=== PATIENT | male | born 1975 | race Hispanic/Latino ===

== ENCOUNTER 2021-01-13 02:57 | Emergency (ER) | payer SELFPAY ==
[2021-01-13] MEDS ORDERED: ONDANSETRON 4 MG (ODT) TAB ONE (04:57)
--- NOTE | 2021-01-13 05:53 | ER ---
Nurse's Notes [facility] Name: Flakito Luis Age: 45 yrs Sex: Male : 1975 Arrival Date: 01/13/2021 Time: 03:04 Bed DIS4 Private MD: Diagnosis: Gastroenteritis Presentation: 01/13 03:40 Chief complaint: Patient states: diarrhea, stomach cramps, vomiting, headache started iw around 8 pm. Coronavirus screen: diarrhea, nausea, vomiting. Client presents with at least one sign or symptom that may indicate coronavirus-19. Standard/surgical mask placed on the client. Provider contacted for isolation considerations. Ebola Screen: Patient negative for fever greater than or equal to 101.5 degrees Fahrenheit, and additional compatible Ebola Virus Disease symptoms Patient denies exposure to infectious person. Patient denies travel to an Ebola-affected area in the 21 days before illness onset. No symptoms or risks identified at this time. Initial Sepsis Screen: Does the patient meet any 2 criteria? No. Patient's initial sepsis screen is negative. Does the patient have a suspected source of infection? No. Patient's initial sepsis screen is negative. Risk Assessment: Do you want to hurt yourself or someone else? Patient reports no desire to harm self or others. Onset of symptoms was January 12, 2021. 03:40 Method Of Arrival: Ambulatory iw 03:40 Acuity: ADDISON 4 iw Historical: - Allergies: 03:42 No Known Allergies; iw - Home Meds: 03:42 None [Active]; iw - PMHx: 03:42 None; iw - PSHx: 03:42 None; iw - Immunization history:: Adult Immunizations not up to date. - Social history:: Smoking status: Patient reports the use of cigarette tobacco products, denies chronic smoking, but will smoke occasionally, smokes one-half pack cigarettes per day. Screenin:04 Abuse screen: Denies threats or abuse. Denies injuries from another. Nutritional iw screening: No deficits noted. Tuberculosis screening: No symptoms or risk factors identified. Fall Risk None identified. Assessment: 04:04 General: Appears in no apparent distress. Behavior is calm, cooperative. Pain: iw Complains of pain in abdomen. Neuro: Level of Consciousness is awake, alert, obeys commands, Oriented to person, place, time, situation, Moves all extremities. Full function. Cardiovascular: Patient's skin is warm and dry. Respiratory: Respiratory effort is even, unlabored, Respiratory pattern is regular. GI: Abdomen is non-distended, Reports cramping, diarrhea, nausea, vomiting. Derm: Skin is intact, is healthy with good turgor. Musculoskeletal: Range of motion: intact in all extremities. Vital Signs: 03:40 BP 137 / 87; Pulse 102; Resp 16; Temp 99.1; Pulse Ox 98% on R/A; Weight 80.74 kg; iw Height 5 ft. 6 in. (167.64 cm); 03:40 Body Mass Index 28.73 (80.74 kg, 167.64 cm) iw ED Course: 03:04 Patient arrived in ED. bp1 03:41 Triage completed. iw 03:42 Arm band placed on. iw 03:52 Susy Solis, RN is Primary Nurse. iw 04:04 Christiano Ireland MD is Attending Physician. 7 04:07 No provider procedures requiring assistance completed. iw Administered Medications: 04:45 Drug: Zofran (Ondansetron) 4 mg Route: PO; iw Outcome: 05:53 Discharge ordered by . mh7 05:59 Patient left the ED. iw Signatures: Susy Solis RN RN Ashley Moreno [facility] Christiano Ireland MD MD mh7
--- NOTE | 2021-01-13 05:53 | EDPHYS ---
Physician Documentation [facility] Name: Flakito Luis Age: 45 yrs Sex: Male : 1975 Arrival Date: 01/13/2021 Time: 03:04 Bed DIS4 Private MD: ED Physician Christiano Ireland HPI: 01/13 04:58 This 45 yrs old Male presents to ER via Ambulatory with complaints of mh7 Nausea/Vomiting/Diarrhea, Fever, Headache. 04:58 The patient presents to the emergency department with nausea, that is moderate, mh7 vomiting, that is intermittent, 3 times since the onset of symptoms, described as clear fluid, diarrhea, that is intermittent, abdominal pain, of the abdomen diffusely, described as crampy, and does not radiate. Onset: The symptoms/episode began/occurred last night, at 20:00. Possible causes: sick contacts, by family, son, . The symptoms are aggravated by nothing. The symptoms are alleviated by nothing. Associated signs and symptoms: Pertinent positives: diarrhea, nausea, vomiting, Pertinent negatives: anorexia, belching, dysuria, fever, flatulence, GI bleeding, hematuria. Severity of symptoms: At their worst the symptoms were moderate last night, in the emergency department the symptoms have improved moderately. Whole family with similar symptoms.. Historical: - Allergies: 03:42 No Known Allergies; iw - Home Meds: 03:42 None [Active]; iw - PMHx: 03:42 None; iw - PSHx: 03:42 None; iw - Immunization history:: Adult Immunizations not up to date. - Social history:: Smoking status: Patient reports the use of cigarette tobacco products, denies chronic smoking, but will smoke occasionally, smokes one-half pack cigarettes per day. ROS: 04:58 Constitutional: Negative for fever, chills, and weight loss, Eyes: Negative for injury, mh7 pain, redness, and discharge, ENT: Negative for injury, pain, and discharge, Neck: Negative for injury, pain, and swelling, Cardiovascular: Negative for chest pain, palpitations, and edema, Respiratory: Negative for shortness of breath, cough, wheezing, and pleuritic chest pain, Back: Negative for injury and pain, : Negative for injury, bleeding, discharge, and swelling, MS/Extremity: Negative for injury and deformity, Skin: Negative for injury, rash, and discoloration, Psych: Negative for depression, anxiety, suicide ideation, homicidal ideation, and hallucinations, Allergy/Immunology: Negative for hives, rash, and allergies, Endocrine: Negative for neck swelling, polydipsia, polyuria, polyphagia, and marked weight changes, Hematologic/Lymphatic: Negative for swollen nodes, abnormal bleeding, and unusual bruising. 04:58 Neuro: Negative for altered mental status, dizziness, gait disturbance, hearing loss, loss of consciousness, numbness, seizure activity, speech changes, syncope, near syncope, tingling, tinnitus, tremor, visual changes, weakness. Exam: 04:58 Constitutional: This is a well developed, well nourished patient who is awake, alert, mh7 and in no acute distress. Head/Face: Normocephalic, atraumatic. Eyes: Pupils equal round and reactive to light, extra-ocular motions intact. Lids and lashes normal. Conjunctiva and sclera are non-icteric and not injected. Cornea within normal limits. Periorbital areas with no swelling, redness, or edema. Neck: Trachea midline, no thyromegaly or masses palpated, and no cervical lymphadenopathy. Supple, full range of motion without nuchal rigidity, or vertebral point tenderness. No Meningismus. Chest/axilla: Normal chest wall appearance and motion. Nontender with no deformity. No lesions are appreciated. Cardiovascular: Regular rate and rhythm with a normal S1 and S2. No gallops, murmurs, or rubs. Normal PMI, no JVD. No pulse deficits. Respiratory: Lungs have equal breath sounds bilaterally, clear to auscultation and percussion. No rales, rhonchi or wheezes noted. No increased work of breathing, no retractions or nasal flaring. Abdomen/GI: Soft, non-tender, with normal bowel sounds. No distension or tympany. No guarding or rebound. No evidence of tenderness throughout. Back: No spinal tenderness. No costovertebral tenderness. Full range of motion. Skin: Warm, dry with normal turgor. Normal color with no rashes, no lesions, and no evidence of cellulitis. MS/ Extremity: Pulses equal, no cyanosis. Neurovascular intact. Full, normal range of motion. Neuro: Awake and alert, GCS 15, oriented to person, place, time, and situation. Cranial nerves II-XII grossly intact. Motor strength 5/5 in all extremities. Sensory grossly intact. Cerebellar exam normal. Normal gait. Psych: Awake, alert, with orientation to person, place and time. Behavior, mood, and affect are within normal limits. Vital Signs: 03:40 BP 137 / 87; Pulse 102; Resp 16; Temp 99.1; Pulse Ox 98% on R/A; Weight 80.74 kg; iw Height 5 ft. 6 in. (167.64 cm); 03:40 Body Mass Index 28.73 (80.74 kg, 167.64 cm) iw MDM: 05:51 Differential diagnosis: gastritis, viral gastroenteritis, gastroenteritis. Data 7 reviewed: vital signs, nurses notes. Data interpreted: Pulse oximetry: on room air is 98 %. Interpretation: normal. Counseling: I had a detailed discussion with the patient and/or guardian regarding: the historical points, exam findings, and any diagnostic results supporting the discharge/admit diagnosis, the need for outpatient follow up, to return to the emergency department if symptoms worsen or persist or if there are any questions or concerns that arise at home. Response to treatment: the patient's symptoms have resolved after treatment, the patient's blood pressure is in an acceptable range, mental status has returned to baseline, the patient no longer shows bradycardia, the patient is not short of breath, the patient is not tachycardic, the patient's pain is gone, the patient's temperature has normalized. 05:53 Patient medically screened. [facility] 05:56 Refusal of service: The patient/guardian displays adequate decision making capability [facility] and despite a detailed discussion of alternatives, benefits, risks, and consequences refuses: prescription. 01/13 04:41 Order name: PO challenge; Complete Time: 05:02 [facility] Administered Medications: 04:45 Drug: Zofran (Ondansetron) 4 mg Route: PO; iw Disposition: 01/13/21 05:53 Discharged to Home. Impression: Gastroenteritis. - Condition is Stable. - Discharge Instructions: Viral Gastroenteritis, Adult, [id number]. - Medication Reconciliation Form, Thank You Letter, Antibiotic Education, Prescription Opioid Use form. - Follow up: Private Physician; When: 1 - 2 days; Reason: Worsening of condition, Recheck today's complaints, Continuance of care, Re-evaluation by your physician. - Problem is new. - Symptoms have improved. Signatures: Susy Solis RN RN iw Christiano Ireland MD MD mh7 Corrections: (The following items were deleted from the chart) 05:59 05:53 01/13/2021 05:53 Discharged to Home. Impression: Gastroenteritis. Condition is iw Stable. Forms are Medication Reconciliation Form, Thank You Letter, Antibiotic Education, Prescription Opioid Use. Follow up: Private Physician; When: 1 - 2 days; Reason: Worsening of condition, Recheck today's complaints, Continuance of care, Re-evaluation by your physician. Problem is new. Symptoms have improved. mh7
[2021-01-13 06:18] VITALS: BP 137/87; TEMP 99.1; O2SAT 98
== END 2021-01-13 05:59 | disposition home or self-care (01) ==
LOC: ER 02:57
DX: K52.9 Noninfective gastroenteritis and colitis, unspecified (principal); F17.210 Nicotine dependence, cigarettes, uncomplicated
CPT/HCPCS: 99282

== ENCOUNTER 2024-08-24 08:26 | Emergency (ER) | payer SELFPAY ==
[2024-08-24] MEDS ORDERED: ONDANSETRON 4 MG/2 ML VIAL ONE (09:15)
[2024-08-24 09:16] LABS: Absolute Basophils 0.1 K/uL (0-0.5); Absolute Eosinophils 0.1 K/uL (0-0.5); Absolute Lymphocytes (CBC) 1.8 K/uL (0.7-4.9); Absolute Monocytes 0.5 K/uL (0.1-1.3); Absolute Neutrophil 6.3 K/uL (1.8-8.0); Basophils % 0.8 % (0-1.3); Eosinophils % 1.3 % (0-4.4); Hemoglobin 15.2 g/dL (13.6-17.9); Lymphocytes % 20.4 % (15.3-44.8); MCH 29.6 pg (27.0-35.0); MCV 89.5 fL (80-100); MPV 8.1 fL (7.6-11.3); Monocytes % 5.5 % (3.3-12.3); Platelets 223 thou/uL (152-406); RBC Red Blood Cell Count 5.14 M/uL (4.33-5.43); Red Cell Distribution Width 13.5 % (12.1-15.2)
[2024-08-24] MEDS ORDERED: MORPHINE 4 MG/ML SYR ONE (09:16)
[2024-08-24] MEDS ORDERED: NA CHLORIDE 0.9% 1,000 ML ONE (09:16)
[2024-08-24 09:22] LABS: PT Prothrombin Time 11.6 SECONDS (9.4-12.5); Protime INR 1.04
[2024-08-24 09:35] LABS: Albumin 3.5 g/dL (3.4-5.0); Albumin/Globulin Ratio 0.9 (1.1-1.8); Anion Gap 5.9 mEq/L (5.0-15.0); Bilirubin Direct 0.2 mg/dL (0-0.2); Bilirubin Indirect, Calculated 0.3 mg/dL (0.2-0.8); Bilirubin Total 0.5 mg/dL (0.2-1.0); Globulin 3.7 g/dL (2.3-3.5); Magnesium 1.8 mg/dL (1.6-2.4); Potassium 3.9 mEq/L (3.5-5.1); Protein, Total 7.2 g/dL (6.4-8.2); Troponin High Sensitivity 4.1 pg/mL (<58.9)
[2024-08-24 09:56] LABS: Specific Gravity 1.014 (1.005-1.030); Urine Bilirubin NEGATIVE (Negative); Urine Blood Negative (Negative); Urine Clarity Clear (Clear); Urine Color Light-Yellow (Yellow); Urine Glucose NEGATIVE (Negative); Urine Ketones NEGATIVE (Negative); Urine Microscopic Reflex YN NO UMIC; Urine Nitrite NEGATIVE (Negative); Urine Protein NEGATIVE (Negative); Urine Urobilinogen Normal (Normal)
--- NOTE | 2024-08-24 10:14 | RAD REPORT ---
EXAMINATION: ONE VIEW CHEST XR CLINICAL INDICATION: Male, 48 years old.,COUGH TECHNIQUE: Frontal chest projection is submitted. Examination is limited by patient positioning and t echnique. COMPARISON: 05/27/2017 FINDINGS: The lungs are well inflated and clear. No pneumothorax or sizable effusion. The heart is normal in s ize. Mediastinal contours are unremarkable. IMPRESSION: No acute intrathoracic abnormalities.
--- NOTE | 2024-08-24 10:20 | RAD REPORT ---
EXAM: CT Chest For Pe Angio TECHNIQUE: CT angiogram of the chest was performed following intravenous contrast administration, inc luding sagittal and coronal as well as maximum intensity projection reformats. One or more of the following dose reduction techniques were used: Automated exposure control, adjustment of the mA and k V according to patient size, and iterative reconstruction. Unless otherwise specified, incidental findings do not require dedicated imaging follow-up. INDICATION: [facility] MAIN CHEST PAIN Bed Name: 6 N COMPARISON: 08/24/2024 radiograph chest. FINDINGS: LINES/TUBES: None. PULMONARY ARTERIES: Main pulmonary arteries are normal in caliber. No filling defects within the pul monary arteries to suggest pulmonary embolus. LUNGS AND AIRWAYS: The lungs and central airways are normal without focal abnormality. PLEURA: No effusion or pneumothorax. HEART AND MEDIASTINUM: The visualized thyroid gland is normal. No mediastinal, hilar, or axillary lym phadenopathy. Heart is unremarkable. No pericardial effusion. SOFT TISSUES AND BONES: No acute osseous abnormality. No significant soft tissue finding. UPPER ABDOMEN: Unremarkable. IMPRESSION: No evidence of acute central pulmonary emboli. No suspicious intrathoracic findings..
[2024-08-24] MEDS ORDERED: KETOROLAC 30 MG/ML INJ ONE (10:21)
--- NOTE | 2024-08-24 10:22 | RAD REPORT ---
EXAMINATION: CT Abdomen Pelvis W Contrast CLINICAL INDICATION: Male, 48 years old. Abd pain;Flank pain TECHNIQUE: CT abdomen and pelvis was performed, after the administration of IV contrast, as per [facility] protocol. Axial, sagittal and coronal reconstructions were obtained. One or more of the following dose reduction techniques were used: Automated exposure control, adjustment of the mA and k V according to patient size, and iterative reconstruction. Unless otherwise specified, incidental findings do not require dedicated imaging follow-up. COMPARISON: No prior exam. FINDINGS: LOWER CHEST: The visualized lung bases are clear. LIVER: Normal in size and contour. No focal lesion. BILIARY SYSTEM: No suspicious abnormalities. SPLEEN: Normal size. No focal lesion. PANCREAS: No mass, ductal dilation, or thaddeus-pancreatic fluid. ADRENALS: Normal; no mass. KIDNEYS: Normal size and contour. No hydronephrosis. URINARY BLADDER: Unremarkable. GASTROINTESTINAL TRACT: No evidence of free air, significant intra-abdominal free fluid, bowel obstru ction or abscess. APPENDIX: Normal appendix. LYMPH NODES: No lymphadenopathy. MUSCULOSKELETAL: No acute or suspicious osseous abnormality. Mild anterior wedge compression deformit ies most notably at T12, and to lesser extent at T11 and L1, favored to be chronic. ADDITIONAL FINDINGS: Nonspecific mild fat stranding in the mesenteric root. This could be idiopathic or related to multiple possible etiologies, including but not limited to an upper abdominal infectious/inflammatory process, panniculitis, and can even be seen with neoplastic conditions such a s lymphoma. IMPRESSION: Mild nonspecific mesenteric root fat stranding as above. No other acute or concerning abnormalities seen in the abdomen or pelvis.
--- NOTE | 2024-08-24 10:41 | EDPHYS ---
Physician Documentation [facility] Name: Flakito Luis Age: 48 yrs Sex: Male : 1975 Arrival Date: 08/24/2024 Time: 08:26 Bed 6 Private MD: LUKAS Physician Rachid Santiago HPI: 08/24 10:01 This 48 yrs old Male presents to ER via Ambulatory with complaints of Back cris Pain, Flank Pain. 10:01 The patient presents with pain that is acute, with no known mechanism of injury. The cris symptoms are located in the right scapular area and right subscapular area. Onset: The symptoms/episode began/occurred 2 day(s) ago. The pain does not radiate. Associated signs and symptoms: Pertinent positives: none. The problem was sustained from unknown cause. Modifying factors: The patient symptoms are alleviated by remaining still, the patient symptoms are aggravated by movement. Severity of symptoms: At their worst the symptoms were mild, in the emergency department the symptoms are unchanged. The patient has not experienced similar symptoms in the past. Historical: - Allergies: 08:52 No Known Allergies; ap3 - PMHx: 08:52 None; ap3 - Immunization history:: Client reports receiving the 2nd dose of the Covid vaccine. - Infectious Disease History:: Denies. - Social history:: Smoking status: Patient reports the use of cigarette tobacco products. ROS: 10:04 Constitutional: Negative for fever, chills, and weight loss, Eyes: Negative for injury, cris pain, redness, and discharge, ENT: Negative for injury, pain, and discharge, Neck: Negative for injury, pain, and swelling, Cardiovascular: Negative for chest pain, palpitations, and edema, Abdomen/GI: Negative for abdominal pain, nausea, vomiting, diarrhea, and constipation, : Negative for injury, bleeding, discharge, and swelling, MS/Extremity: Negative for injury and deformity, Skin: Negative for injury, rash, and discoloration, Neuro: Negative for headache, weakness, numbness, tingling, and seizure, 10:04 Respiratory: Positive for cough, pleurisy, 10:04 Back: Positive for flank pain, on the right, Exam: 10:05 Constitutional: This is a well developed, well nourished patient who is awake, alert, cris and in no acute distress. Head/Face: Normocephalic, atraumatic. Eyes: Pupils equal round and reactive to light, extra-ocular motions intact. Lids and lashes normal. Conjunctiva and sclera are non-icteric and not injected. Cornea within normal limits. Periorbital areas with no swelling, redness, or edema. ENT: Nares patent. No nasal discharge, no septal abnormalities noted. Tympanic membranes are normal and external auditory canals are clear. Oropharynx with no redness, swelling, or masses, exudates, or evidence of obstruction, uvula midline. Mucous membranes moist. Neck: Trachea midline, no thyromegaly or masses palpated, and no cervical lymphadenopathy. Supple, full range of motion without nuchal rigidity, or vertebral point tenderness. No Meningismus. Chest/axilla: Normal chest wall appearance and motion. Nontender with no deformity. No lesions are appreciated. Cardiovascular: Regular rate and rhythm with a normal S1 and S2. No gallops, murmurs, or rubs. Normal PMI, no JVD. No pulse deficits. Respiratory: Lungs have equal breath sounds bilaterally, clear to auscultation and percussion. No rales, rhonchi or wheezes noted. No increased work of breathing, no retractions or nasal flaring. Abdomen/GI: Soft, non-tender, with normal bowel sounds. No distension or tympany. No guarding or rebound. No evidence of tenderness throughout. Skin: Warm, dry with normal turgor. Normal color with no rashes, no lesions, and no evidence of cellulitis. MS/ Extremity: Pulses equal, no cyanosis. Neurovascular intact. Full, normal range of motion., bilateral aka Neuro: Awake and alert, GCS 15, oriented to person, place, time, and situation. Cranial nerves II-XII grossly intact. Motor strength 5/5 in all extremities. Sensory grossly intact. Cerebellar exam normal. Normal gait. Psych: Awake, alert, with orientation to person, place and time. Behavior, mood, and affect are within normal limits. 10:05 Back: pain, that is mild, of the right scapular area and right subscapular area, ROM is painful, with rotation to the right, with rotation to the left, with flexion, normal spinal alignment noted, CVA tenderness, that is mild, is noted on the right, vertebral tenderness, is not appreciated, muscle spasm, is not present, 10:10 ECG was reviewed by the Attending Physician. cris Vital Signs: 08:50 BP 138 / 97; Pulse 67; Resp 17; Temp 97.8(O); Pulse Ox 100% ; Weight 95.25 kg; Height 5 ap3 ft. 6 in. ; Pain 8/10; 10:23 BP 126 / 93; Pulse 60; Resp 14 S; Pulse Ox 100% on R/A; aa5 08:50 Body Mass Index 33.89 (95.25 kg, 167.64 cm) ap3 08:50 Pain Scale: Adult ap3 [place] Coma Score: 10:05 Eye Response: spontaneous(4). Motor Response: obeys commands(6). Verbal Response: cris oriented(5). Total: 15. MDM: 08:44 Medical Screening Exam initiated cris 10:06 Differential diagnosis: chronic back pain, Fatigue Fracture Obesity Renal Infarction cris ruptured disc, spinal injury, sprain, Ureterolithiasis vertebral fracture. Differential Diagnosis sepsis, flu. Data reviewed: vital signs, nurses notes, lab test result(s), EKG, radiologic studies, plain films. Consideration of Admission/Observation Escalation of care including admission/observation considered. I considered the following discharge prescriptions or medication management in the emergency department Medications were administered in the Emergency Department. See MAR. Independent interpretation of the following test(s) in the Emergency Department EKG: See my EKG interpretation above. Test considered but Not performed: MRI: no mri spine. Historians other than the Patient: pt well informed. Care significantly affected by the following chronic conditions: none. Counseling: I had a detailed discussion with the patient and/or guardian regarding the historical points, exam findings, and any diagnostic results supporting the discharge/admit diagnosis, lab results, radiology results, the need for outpatient follow up, a family practitioner. 08/24 08:49 Order name: Basic Metabolic Panel; Complete Time: 09:46 [facility] 08/24 08:49 Order name: CBC with Diff; Complete Time: 09:46 [facility] 08/24 08:49 Order name: LFT's; Complete Time: 09:46 [facility] 08/24 08:49 Order name: Magnesium; Complete Time: 09:46 [facility] 08/24 08:49 Order name: NT PRO-BNP; Complete Time: 09:46 [facility] 08/24 08:49 Order name: PT-INR; Complete Time: 09:46 [facility] 08/24 08:49 Order name: Troponin HS; Complete Time: 09:46 [facility] 08/24 08:49 Order name: Lipase; Complete Time: 09:46 [facility] 08/24 08:49 Order name: Urinalysis w/ reflexes; Complete Time: 10:38 [facility] 08/24 08:49 Order name: XRAY Chest (1 view); Complete Time: 10:38 [facility] 08/24 08:49 Order name: CT Chest For PE Angio; Complete Time: 10:38 [facility] 08/24 08:49 Order name: CT Abd/Pelvis - IV Contrast Only; Complete Time: 10:38 [facility] 08/24 08:49 Order name: Cardiac monitoring; Complete Time: 09:12 [facility] 08/24 08:49 Order name: EKG - Nurse/Tech; Complete Time: 09:12 [facility] 08/24 08:49 Order name: IV Saline Lock; Complete Time: 09:12 [facility] 08/24 08:49 Order name: Labs collected and sent; Complete Time: 09:12 [facility] 08/24 08:49 Order name: O2 Per Protocol; Complete Time: 09:12 [facility] 08/24 08:49 Order name: O2 Sat Monitoring; Complete Time: 09:12 [facility] EC:10 Rate is 74 beats/min. Rhythm is regular. QRS [place] is Normal. [place] interval is normal. QRS cris interval is normal. No Q waves. No ST changes noted. Clinical impression: Normal ECG and No evidence of ischemia. Interpreted by me. Reviewed by me. Administered Medications: 09:20 Drug: NS 0.9% IV 1000 ml IV at 1000 ml once; to be given as a bolus over 60 minutes aa5 Route: IV; Rate: 1000 ml; Site: left antecubital; 11:00 Follow up: IV Status: Completed infusion; IV Intake: 1000ml ap3 09:20 Drug: morphine IVP or IV 4 mg IVP once over 4 mins Route: IVP; Infused Over: 4 mins; aa5 Site: left antecubital; 09:25 Follow up: Response: No adverse reaction aa5 09:20 Drug: Ondansetron IVP 4 mg IVP once; over 2 minutes Route: IVP; Site: left antecubital; aa5 09:25 Follow up: Response: No adverse reaction aa5 10:23 Drug: Ketorolac IVP 30 mg IVP once Route: IVP; Site: right antecubital; aa5 10:59 Follow up: Response: No adverse reaction; Pain is decreased ap3 10:52 Drug: Ciprofloxacin PO 500 mg PO once Route: PO; aa5 10:59 Follow up: Response: No adverse reaction ap3 Disposition Summary: 08/24/24 10:41 Discharge Ordered Notes: Location: Home cris Problem: new cris Symptoms: have improved cris Condition: Stable cris Diagnosis - Low back pain cris - Strain of muscle and tendon of back wall of thorax cris - Unspecified symptoms and signs involving the musculoskeletal system cris - Abdominal pain, unspecified - CT POSITIVE FOR MILD MESENTERITIS cris Followup: cris - With: Private Physician - When: 1 - 2 days - Reason: Recheck today's complaints, Continuance of care, Re-evaluation by your physician Followup: cris - With: New Melendez DO - When: 2 - 3 days - Reason: Recheck today's complaints, Re-evaluation by your physician Followup: cris - With: Peyton Lenz MD - When: 2 - 3 days - Reason: Recheck today's complaints, Re-evaluation by your physician Discharge Instructions: - Discharge Summary Sheet cris - Acute Back Pain, Adult cris - Musculoskeletal Pain cris - Pleurisy cris - Pleurisy, Lsek-tm-Tral cris - Back Injury Prevention cris - Mesenteric Adenitis, Adult [facility] Forms: - Medication Reconciliation Form cris - Antibiotic Education cris - Prescription Opioid Use cris - Patient Portal Instructions [facility] - Leadership Thank You Letter [facility] Prescriptions: - Ibuprofen 600 mg Oral Tablet - take 1 tablet ORAL route every 6 hours As needed take with food; 30 tablet; [facility] Refills: 0, Product Selection Permitted - Cipro 500 mg Oral tablet - take 1 tablet ORAL route every 12 hours for 7 days; 10 tablet; Refills: 0, [facility] Product Selection Permitted - Cyclobenzaprine 5 mg Oral Tablet - take 1 tablet ORAL route 3 times per day As needed; 15 tablet; Refills: 0, [facility] Product Selection Permitted Signatures: Dispatcher [employer] Rachid Ferrer MD MD cha Calderon, Audri RN RN aa5 Mary Ghosh RN RN ap3 Corrections: (The following items were deleted from the chart) 08:50 08:50 BASIC METABOLIC PANEL+C.LAB.BRZ ordered. EDMS EDMS 08:50 08:50 CBC+H.LAB.BRZ ordered. EDMS EDMS 08:50 08:50 HEPATIC FUNCTION+C.LAB.BRZ ordered. EDMS EDMS 08:50 08:50 MAGNESIUM+C.LAB.BRZ ordered. EDMS EDMS 08:50 08:50 PROBNP+C.LAB.BRZ ordered. EDMS EDMS 08:50 08:50 PROTIME (+INR)+COAG.LAB.BRZ ordered. EDMS EDMS 08:50 08:50 Troponin High Sensitivity+C.LAB.BRZ ordered. EDMS EDMS 08:50 08:50 LIPASE+C.LAB.BRZ ordered. EDMS EDMS 08:50 08:50 Urinalysis+U.LAB.BRZ ordered. EDMS EDMS 08:50 08:50 Chest Single View+RAD.RAD.BRZ ordered. EDMS EDMS 08:50 08:50 Chest For PE Angio+CT.RAD.BRZ ordered. EDMS EDMS 08:50 08:50 Abdomen Pelvis W Con+CT.RAD.BRZ ordered. EDMS EDMS
--- NOTE | 2024-08-24 10:41 | ER ---
Nurse's Notes [facility] Name: Flakito Luis Age: 48 yrs Sex: Male : 1975 Arrival Date: 08/24/2024 Time: 08:26 Bed 6 Private MD: Diagnosis: Low back pain;Strain of muscle and tendon of back wall of thorax;Unspecified symptoms and signs involving the musculoskeletal system;Abdominal pain, unspecified-CT POSITIVE FOR MILD MESENTERITIS Presentation: 08/24 08:50 Chief complaint: Patient states: he has been having right mid back pain for aspprox 4 ap3 days. patient currently rates his pain as a 8/10 on the pain scale. Coronavirus screen: At this time, the client does not indicate any symptoms associated with coronavirus-19. Ebola Screen: No symptoms or risks identified at this time. Initial Sepsis Screen: Does the patient meet any 2 criteria? No. Patient's initial sepsis screen is negative. Does the patient have a suspected source of infection? No. Patient's initial sepsis screen is negative. Risk Assessment: Do you want to hurt yourself or someone else? Patient reports no desire to harm self or others. Onset of symptoms was August 20, 2024. 08:50 Method Of Arrival: Ambulatory ap3 08:50 Acuity: ADDISON 4 ap3 Triage Assessment: 08:52 General: Appears in no apparent distress. Behavior is calm, cooperative, appropriate ap3 for age. Pain: Complains of pain in right subscapular area Pain currently is 8 out of 10 on a pain scale. Neuro: Level of Consciousness is awake, alert, obeys commands, Oriented to person, place, time, situation, Appropriate for age. Cardiovascular: Patient's skin is warm and dry. Respiratory: Airway is patent Respiratory effort is even, unlabored, Respiratory pattern is regular, symmetrical. Musculoskeletal: Range of motion: intact in all extremities. Historical: - Allergies: 08:52 No Known Allergies; ap3 - PMHx: 08:52 None; ap3 - Immunization history:: Client reports receiving the 2nd dose of the Covid vaccine. - Infectious Disease History:: Denies. - Social history:: Smoking status: Patient reports the use of cigarette tobacco products. Screenin:52 [facility] ED Fall Risk Assessment (Adult) History of falling in the last 3 months, ap3 including since admission No falls in past 3 months (0 pts) Confusion or Disorientation No (0 pts) Intoxicated or Sedated No (0 pts) Impaired Gait No (0 pts) Mobility Assist Device Used No (0 pt) Altered Elimination No (0 pt) Score/Fall Risk Level 0 - 2 = Low Risk Oriented to surroundings, Maintained a safe environment, Educated pt \T\ family on fall prevention, incl call for assistance when getting out of bed, Assessed \T\ reinforced patient's understanding of fall precautions, Hourly rounding (assess needs \T\ fall precautionary measures) done, Used ambulatory aids as needed (educated on \T\ assisted with), Used gait belt as appropriate. Abuse screen: Denies threats or abuse. Nutritional screening: No deficits noted. Tuberculosis screening: No symptoms or risk factors identified. Assessment: 09:00 General: Appears uncomfortable, Behavior is calm, cooperative. Pain: Complains of pain aa5 in thoracic area Pain radiates to right scapular area and right subscapular area Pain currently is 8 out of 10 on a pain scale. Quality of pain is described as sharp, shooting, Pain began 4 days ago Is continuous, Aggravated by increased activity, repositioning, Noted to be resistant to movement. Neuro: Level of Consciousness is awake, alert, obeys commands, Oriented to person, place, time, situation. Cardiovascular: Heart tones S1 S2 present Patient's skin is warm and dry. Rhythm is regular. Respiratory: Airway is patent Respiratory effort is even, unlabored, Respiratory pattern is regular, symmetrical. GI: Abdomen is round non-distended, Bowel sounds present X 4 quads. Abd is soft and non tender X 4 quads. : No signs and/or symptoms were reported regarding the genitourinary system. EENT: No signs and/or symptoms were reported regarding the EENT system. Derm: Skin is pink, warm \T\ dry. Musculoskeletal: Range of motion: intact in all extremities. 09:20 Reassessment: Patient is alert, oriented x 3, equal unlabored respirations, skin aa5 warm/dry/pink. 10:23 Reassessment: Patient is alert, oriented x 3, equal unlabored respirations, skin aa5 warm/dry/pink. 10:23 Pain: Pain currently is 7 out of 10 on a pain scale. aa5 Vital Signs: 08:50 BP 138 / 97; Pulse 67; Resp 17; Temp 97.8(O); Pulse Ox 100% ; Weight 95.25 kg; Height 5 ap3 ft. 6 in. ; Pain 8/10; 10:23 BP 126 / 93; Pulse 60; Resp 14 S; Pulse Ox 100% on R/A; aa5 08:50 Body Mass Index 33.89 (95.25 kg, 167.64 cm) ap3 08:50 Pain Scale: Adult ap3 [place] Coma Score: 10:05 Eye Response: spontaneous(4). Motor Response: obeys commands(6). Verbal Response: cris oriented(5). Total: 15. ED Course: 08:31 Patient arrived in ED. sj2 08:37 Sharmaine Lainez, JOHANN is Primary Nurse. aa5 08:44 Rachid Santiago MD is Attending Physician. cris 08:52 Triage completed. ap3 08:53 Arm band placed on right wrist. ap3 09:00 Patient has correct armband on for positive identification. Placed in gown. Bed in low aa5 position. Call light in reach. Side rails up X2. Client placed on continuous cardiac and pulse oximetry monitoring. NIBP monitoring applied. vamp throater on. Pulse ox on. NIBP on. 09:00 Provided Education on: meds. ko1 09:00 No provider procedures requiring assistance completed. ko1 09:01 EKG done, by ED staff, reviewed by Rachid Santiago MD. aa5 09:05 Initial lab(s) drawn, by ks, sent to lab. Inserted saline lock: 20 gauge in left aa5 antecubital area, using aseptic technique. Blood collected. Flushed with 10 mL NS. 09:45 Assisted with urinal. ko1 09:49 XRAY Chest (1 view) In Process Unspecified. EDMS 09:50 Urinalysis w/ reflexes Sent. ko1 09:50 Urine collected: clean catch specimen, clear. ko1 09:56 CT Chest For PE Angio In Process Unspecified. EDMS 09:56 CT Abd/Pelvis - IV Contrast Only In Process Unspecified. EDMS 10:40 New Melendez DO is Referral Physician. cris 10:40 Peyton Lenz MD is Referral Physician. cris 10:55 IV discontinued, intact, bleeding controlled, No redness/swelling at site. Pressure ko1 dressing applied. Administered Medications: 09:20 Drug: NS 0.9% IV 1000 ml IV at 1000 ml once; to be given as a bolus over 60 minutes aa5 Route: IV; Rate: 1000 ml; Site: left antecubital; 11:00 Follow up: IV Status: Completed infusion; IV Intake: 1000ml ap3 09:20 Drug: morphine IVP or IV 4 mg IVP once over 4 mins Route: IVP; Infused Over: 4 mins; aa5 Site: left antecubital; 09:25 Follow up: Response: No adverse reaction aa5 09:20 Drug: Ondansetron IVP 4 mg IVP once; over 2 minutes Route: IVP; Site: left antecubital; aa5 09:25 Follow up: Response: No adverse reaction aa5 10:23 Drug: Ketorolac IVP 30 mg IVP once Route: IVP; Site: right antecubital; aa5 10:59 Follow up: Response: No adverse reaction; Pain is decreased ap3 10:52 Drug: Ciprofloxacin PO 500 mg PO once Route: PO; aa5 10:59 Follow up: Response: No adverse reaction ap3 Medication: 09:47 VIS not applicable for this client. aa5 Intake: 11:00 IV: 1000ml; Total: 1000ml. ap3 Outcome: 10:41 Discharge ordered by . cris 10:59 Discharged to home ambulatory, ap3 10:59 Condition: good 10:59 Discharge instructions given to patient, Instructed on discharge instructions, follow up and referral plans. medication usage, Demonstrated understanding of instructions, follow-up care, medications, Prescriptions given X 3, 11:00 Patient left the ED. ap3 Signatures: Dispatcher [employer] EDMS Rachid Santiago MD MD cha Calderon, Audri, RN RN aa5 Mary Ghosh RN RN ap3 Yajaira Couch RN RN ko1 Monserrat Cueva
[2024-08-24] MEDS ORDERED: CIPROFLOXACIN HCL 500 MG TAB ONE (10:49)
[2024-08-24 11:08] VITALS: TEMP 97.8; O2SAT 100
[2024-08-24 11:14] VITALS: BP 126/93
--- NOTE | 2024-08-25 15:47 | EKG ---
Test Date: 2024-08-24 Test Time: 09:01:42 Finisher Denture: CESARIO MEASUREMENT RESULTS: Intervals: Rate: 74 HI: 130 QRSD: 82 QT: 402 QTc: 446 [place]: P: 68 HI: 130 QRS: 76 T: 62 INTERPRETIVE STATEMENTS: Normal sinus rhythm with sinus arrhythmia Normal ECG Compared to ECG 05/27/2017 09:41:09 Sinus bradycardia no longer present Electronically Signed On 08-25-24 15:46:07 TASSEL MAKING MACHINE OPERATOR by Logan Price
== END 2024-08-24 11:00 | disposition home or self-care (01) ==
LOC: ER 08:26
DX: S39.012A Strain of muscle, fascia and tendon of lower back, initial encounter (principal); X58.XXXA Exposure to other specified factors, initial encounter; F17.210 Nicotine dependence, cigarettes, uncomplicated; K65.4 Sclerosing mesenteritis
CPT/HCPCS: 36415; 71045; 71275; 74177; 80048; 80076; 81003; 83690; 83735; 83880; 84484; 85025; 85610; 93005; 99285; J2405; J7030; Q9967